=== PATIENT | female | born 1960 | race Caucasian/White ===

== ENCOUNTER 2017-03-15 08:09 | Day surgery (SDC) | payer OTHER ==
[2017-03-14 11:59] LABS: Urine RBC None Seen /hpf (0 - 4)
[2017-03-14 12:08] LABS: Basophils # (auto) 0 uL; Basophils % (auto) 0.4 % (0.0-2.0); CONDITION Y; Eosinophils # (auto) 0.3 uL; Hematocrit 43.4 % (36.0-46.0); Hemoglobin 14.7 g/dL (12.2-16.2); Lymphocytes # (auto) 2.4 uL; Mean Corpuscular Hemoglobin 30.4 pg (28.0-32.0); Mean Corpuscular Hgb Conc. 33.9 g/dL (32.0-36.0); Mean Corpuscular Volume 89.8 fL (80.0-100.0); Mean Platelet Volume 8.9 fL (7.4-10.4); Monocytes # (auto) 0.5 uL; Neutrophils # (auto) 5.6 uL; Neutrophils % (auto) 63.6 % (37.0-80.0); Platelet Count (auto) 283 10^3/uL (140-450); Red Cell Distribution Width 14.8 % (11.6-16.0); White Blood Cell 8.8 10^3/uL (4.4-10.8)
[2017-03-14 12:15] LABS: Urine Bilirubin Negative (Negative); Urine Blood Negative /uL (Negative); Urine Color Yellow (Yellow); Urine Glucose Normal (Normal); Urine Ketone Negative (Negative); Urine Mucus FEW (None Seen); Urine Nitrite Negative (Negative); Urine Squamous Epithelial Cell FEW /hpf (<5); Urine Urobilinogen Normal (Negative); Urine pH 6.5 (5.0-8.0)
[2017-03-14 12:20] LABS: INR 0.95 (0.9-1.15); Partial Thromboplastin Time 25.1 sec (22.64-33.71); Prothrombin Time 10.3 sec (9.37-12.3)
[2017-03-14 12:38] LABS: Albumin 4.1 g/dL (3.4-5.0); BUN/Creatinine Ratio 14.7; Bilirubin, Total 0.7 mg/dL (0.2-1.0); Calcium 9.6 mg/dL (8.5-10.1); Potassium 4.2 mmol/L (3.5-5.1)
[~2017-03-15] VITALS: Ht 170.2 cm; Wt 79.4 kg
[2017-03-15] MEDS ORDERED: ceFAZolin 1GM/50ML D5W 50 ML IV ONE (08:33)
[2017-03-15] MEDS ORDERED: BUPIVACAINE 0.75% INJ 10ML MPV SDV IJ ONE ×2 (08:39→11:20)
[2017-03-15] MEDS ORDERED: DEXAMETHASONE SOD PHOS 10MG/1ML VIAL INJ ONE (09:52)
[2017-03-15] MEDS ORDERED: MIDAZOLAM HCL 1MG/1ML-2 ML VIAL ONE (09:52)
[2017-03-15] MEDS ORDERED: fentaNYL CITRATE 100 MCG/2 ML VL ONE (09:52)
[2017-03-15] MEDS ORDERED: PROPOFOL 10 MG/ML 20 ML IV ONE (09:52)
[2017-03-15] MEDS ORDERED: MEPERIDINE HCL (50 MG/ML) 1 ML VIAL ONE (09:52)
[2017-03-15] MEDS ORDERED: ONDANSETRON HCL 4 MG/2 ML VIAL IV ONE (10:15)
[2017-03-15] MEDS ORDERED: ePHEDrine SULFATE 50 MG/ML AMP IV PRN (10:15)
[2017-03-15] MEDS ORDERED: KETOROLAC TROMETH 30 MG/ML 1ML VIAL IV ONE (10:15)
[2017-03-15] MEDS ORDERED: MORPHINE SULF INJ 2 MG/ML SYRINGE 1ML IV PRN (10:15)
[2017-03-15] MEDS ORDERED: LABETALOL HCL 5 MG/ML 4ML SYRINGE IV PRN (10:15)
[2017-03-15] MEDS ORDERED: MIDAZOLAM HCL 1MG/1ML-2 ML VIAL IV PRN (10:15)
[2017-03-15] MEDS ORDERED: hydrALAZINE HCL 20 MG/ML VL IV PRN (10:15)
[2017-03-15] MEDS ORDERED: KETOROLAC TROMETH 30 MG/ML 1ML VIAL ONE (11:07)
[2017-03-15] MEDS ORDERED: SILVER NITRATE-POTAS NITRA STICK TOP ONE (11:25)
[2017-03-15] MEDS ORDERED: SILVER SULFADIAZINE 1 % TOPICAL CREAM 50GM TOP ONE (11:27)
[2017-03-15] MEDS ORDERED: NEOMYCIN-BACITRACIN-POLYM 15GM TOP OINT TOP ONE (11:30)
[2017-03-15] MEDS: HYDROmorphone HCL 2 MG/ML VL IV PRN ×2 (11:52→12:15)
[2017-03-15 13:37] VITALS: BP 121/85
== END 2017-03-15 13:37 | disposition home or self-care (01) ==
LOC: SUR 08:09
PROVIDERS: ATTEND Podiatrist Foot & Ankle Surgery
DX: M20.42 Other hammer toe(s) (acquired), left foot (principal); M20.5X2 Other deformities of toe(s) (acquired), left foot; B07.0 Plantar wart; I10 Essential (primary) hypertension
CPT/HCPCS: 11421; 28285; 36415; 80053; 81001; 85025; 85610; 85730; J0690; J1100; J1170; J1885; J2175; J2250; J2704; J3010; J3490; V2790

== ENCOUNTER 2025-02-26 08:26 | Outpatient (CLI) | payer OTHER ==
--- NOTE | 2025-02-26 09:41 | DVH ---
US US GUIDANCE FOR NEEDLE PLACEME, HISTORY: LEFT GROIN MASS PROCEDURE: Informed consent was obtained. Limited ultrasound of the left inguinal lymph node was obta ined. The overlying skin was prepped with chlorhexidine which was allowed to dry and draped in the us ual sterile fashion. Time out was performed. The skin and soft tissue were infiltrated with 1% lidoca ine. Under real-time ultrasound guidance, 3 biopsy specimens were obtained using Amulyteince 18 gauge co re biopsy needle; placed into formalin and rpmi. No immediate complication was noted. FINDINGS: Limited intraprocedural ultrasound demonstrates biopsy needle within the left inguinal lymp h node. No significant post procedural hematoma is noted. IMPRESSION: Ultrasound biopsy of the left inguinal lymph node. Pathology results pending.
== END 2025-02-26 17:00 | disposition home or self-care (01) ==
LOC: US 08:26
DX: R22.42 Localized swelling, mass and lump, left lower limb (principal); C77.4 Secondary and unspecified malignant neoplasm of inguinal and lower limb lymph nodes; F17.210 Nicotine dependence, cigarettes, uncomplicated; Z88.5 Allergy status to narcotic agent
CPT/HCPCS: 38505; 76942; 93926